=== PATIENT | male | born 1950 | race Caucasian/White ===

== ENCOUNTER 2023-09-29 06:00 | Outpatient (CLI) | payer MEDICARE, SELFPAY | END 2023-09-29 06:01 | disposition home or self-care (01) | LOC: RAD 11-28 08:02 | PROVIDERS: Visit Provider Psychiatry & Neurology Neurology | DX: E55.9 Vitamin D deficiency, unspecified (principal); I10 Essential (primary) hypertension; F03.90 Unspecified dementia, unspecified severity, without behavioral disturbance, psychotic disturbance, mood disturbance, and anxiety; E53.8 Deficiency of other specified B group vitamins | CPT/HCPCS: 36415; 80061; 82306; 82542; 82565; 82607; 83090; 83921; 86592; 86780 ==

== ENCOUNTER → 2023-09-29 07:35 | Outpatient (BNVA) | payer MEDICARE, SELFPAY | PROVIDERS: Visit Provider Psychiatry & Neurology Neurology | DX: F03.90 Unspecified dementia, unspecified severity, without behavioral disturbance, psychotic disturbance, mood disturbance, and anxiety (principal); E53.8 Deficiency of other specified B group vitamins; I10 Essential (primary) hypertension; Q21.9 Congenital malformation of cardiac septum, unspecified | CPT/HCPCS: 99203 ==

== ENCOUNTER → 2023-11-05 15:09 | Outpatient (BNVA) | payer MEDICARE, SELFPAY | PROVIDERS: Visit Provider Psychiatry & Neurology Neurology | DX: F03.90 Unspecified dementia, unspecified severity, without behavioral disturbance, psychotic disturbance, mood disturbance, and anxiety (principal); R41.0 Disorientation, unspecified; R41.3 Other amnesia; G93.40 Encephalopathy, unspecified | CPT/HCPCS: 95816 ==